=== PATIENT | female | born 1935 | race Caucasian/White ===

== ENCOUNTER 2017-08-26 12:46 | Emergency (ER) | payer BC, MEDICARE ==
[2017-08-26 13:50] LABS: ADD MAN DIFF? NO
[2017-08-26 13:53] LABS: BASO # 0.1 x10^3/uL (0.0-0.2); BASO % 1 % (0-3); EOS # 0.1 x10^3/uL (0.0-0.7); EOS % 2 % (0-3); HEMATOCRIT 41.6 % (36.0-47.0); LYMPH # 1.6 x10^3/uL (1.0-4.8); LYMPH % 31 % (24-48); MEAN CORPUSCULAR HEMOGLOBIN 33 pg (25-35); MEAN CORPUSCULAR HGB CONC 34 g/dL (31-37); MEAN CORPUSCULAR VOLUME 96 fL (79-100); MONO # 0.6 x10^3/uL (0.0-1.1); MONO % 12 % (0-9); NEUT # 2.8 x10^3uL (1.8-7.7); NEUT % 53 % (31-73); PLATELET COUNT 192 x10^3/uL (140-400); RED BLOOD COUNT 4.32 x10^6/uL (3.50-5.40); WHITE BLOOD COUNT 5.2 x10^3/uL (4.0-11.0)
[2017-08-26 13:59] LABS: BILIRUBIN,URINE NEGATIVE (NEG); CLARITY,URINE CLEAR; COLOR,URINE YELLOW; GLUCOSE,URINE NEGATIVE (NEG); NITRITE,URINE NEGATIVE (NEG); PROTEIN,URINE NEGATIVE (NEG-TRACE); UROBILINOGEN,URINE 0.2 mg/dL (0.2 mg/dL)
[2017-08-26 14:05] LABS: ANION GAP 5 (6-14); BLOOD UREA NITROGEN 22 mg/dL (7-20); BUN/CREATININE RATIO 12 (6-20); CALCIUM 9.1 mg/dL (8.5-10.1); CARBON DIOXIDE 32 mmol/L (21-32); CHLORIDE 105 mmol/L (98-107); CREATININE 1.8 mg/dL (0.6-1.0); GFR 27.1; GLUCOSE 118 mg/dL (70-99); POTASSIUM 4.3 mmol/L (3.5-5.1); SODIUM 142 mmol/L (136-145)
[2017-08-26 14:08] LABS: RBC,URINE OCC /HPF (0-2)
[2017-08-26 14:09] LABS: BACTERIA,URINE MODERATE /HPF (0-FEW); HYALINE CASTS, URINE FEW /HPF; SQUAMOUS EPITHELIAL CELL,UR MOD /LPF
[2017-08-26 14:11] LABS: ALBUMIN 3.3 g/dL (3.4-5.0); ALBUMIN/GLOBULIN RATIO 0.8 (1.0-1.7); ALK PHOS 62 U/L (46-116); ALT (SGPT) 21 U/L (14-59); AST (SGOT) 22 U/L (15-37); LIPASE 112 U/L (73-393); MAGNESIUM 2.2 mg/dL (1.8-2.4); TOTAL BILIRUBIN 0.2 mg/dL (0.2-1.0); TOTAL PROTEIN 7.2 g/dL (6.4-8.2)
[2017-08-26 14:14] LABS: TROPONINI < 0.017 ng/mL (0.000-0.055)
[2017-08-26 14:16] LABS: NT-PRO BNP 307 pg/mL (0-449)
[2017-08-26] MEDS: IV NORMAL SALINE 500ML BAG 500 ML IV (16:00)
== END 2017-08-26 16:35 | disposition home or self-care (01) ==
LOC: ER 12:46
DX: F03.90 Unspecified dementia, unspecified severity, without behavioral disturbance, psychotic disturbance, mood disturbance, and anxiety (principal); N39.0 Urinary tract infection, site not specified; N28.9 Disorder of kidney and ureter, unspecified; Z90.710 Acquired absence of both cervix and uterus; Z87.442 Personal history of urinary calculi; Z88.0 Allergy status to penicillin
CPT/HCPCS: 36415; 51702; 70450; 71045; 80053; 81001; 83690; 83735; 83880; 84484; 85025; 87086; 93005; 96360; 99285-25; J7040

== ENCOUNTER 2017-09-01 04:03 | Emergency (ER) | payer BC ==
[2017-09-01 05:13] LABS: BILIRUBIN,URINE NEGATIVE (NEG); CLARITY,URINE CLEAR; COLOR,URINE YELLOW; GLUCOSE,URINE NEGATIVE (NEG); NITRITE,URINE NEGATIVE (NEG); PH,URINE 6.5; PROTEIN,URINE NEGATIVE (NEG-TRACE); UROBILINOGEN,URINE 0.2 mg/dL (0.2 mg/dL)
[2017-09-01 05:14] LABS: BACTERIA,URINE 0 /HPF (0-FEW); RBC,URINE OCC /HPF (0-2)
[2017-09-01 05:15] LABS: HYALINE CASTS, URINE OCCASIONAL /HPF; SQUAMOUS EPITHELIAL CELL,UR MOD /LPF
== END 2017-09-01 06:45 | disposition home or self-care (01) ==
LOC: ER 04:03
DX: N39.0 Urinary tract infection, site not specified (principal); I10 Essential (primary) hypertension; Z87.442 Personal history of urinary calculi; Z87.440 Personal history of urinary (tract) infections; Z90.710 Acquired absence of both cervix and uterus; Z88.0 Allergy status to penicillin
CPT/HCPCS: 81001; 87086; 99284

== ENCOUNTER 2018-06-25 14:32 | Emergency (ER) | payer BC ==
[~2018-06-25] VITALS: Ht 162.6 cm; Wt 72.6 kg
[~2018-06-25 14:32] MED LIST: ALPR0.5T6 PO; BUPR150T11 PO; BUPR75TA6 PO; CRAN500C5 PO; HYDR1TAB26 PO; LATA2.5D3 OP; METO-239 PO; METO-269 PO; MIRT15TA90 PO; NITR100C62 PO; OMEP40CA5 PO; PSYL3.4P PO; SULF1TAB24 PO; ZOLP10TA4 PO
[2018-06-25 15:48] VITALS: BP 167/68
--- NOTE | 2018-06-25 18:23 | PHYS DOC ---
Past Medical History Past Medical History: Dementia, Depression, Hypertension, UTI Additional Past Medical Histor: kidney stones Past Surgical History: Hysterectomy Alcohol Use: None Drug Use: Other Social History Narrative: CBD OIL Adult General Chief Complaint Chief Complaint: MULTIPLE COMPLAINTS HPI HPI 82 y/o female presents to ER via POV with her Paul for complaints that pt has been having intermittent episodes of chills and sweating. Per pt has had blood work at her PCP's office this week and in the past couple of weeks and they haven't had any reports of abnormal labs. Pt's reports pt has been recently taken off tramadol for chronic rt shoulder pain and is taking tylenol for pain as her doctor wanted to see if pt being off tramadol would improve chills/sweating episodes. He reports pt has been to her PCP's office multiple times to discuss sweating episodes. Per pt is currently on antibiotics for UTI- uncertain of which antibiotic. Pt w/hx of Dementia and during initial discussion w/ only has c/o rt shoulder pain which husb. reports is not why she was brought to ER. He voices frustration on pt having intermittent episodes where she becomes sweaty and he has to change her clothes/bed linens frequently and he brought her to ER to find cause of her sweating episodes. He denies pt with change in MS, c/o CP/SOA, V/D episodes, or fever. Review of Systems Review of Systems Constitutional: Denies fever. Reports chills and sweating episodes which are worse at night Eyes: Denies change in visual acuity or eye pain [] HENT: Denies nasal congestion or sore throat [] Respiratory: Denies cough or shortness of breath [] Cardiovascular: No additional information not addressed in HPI [] GI: Denies abdominal pain, vomiting, bloody stools or diarrhea [] : Denies change in urinary pattern Musculoskeletal: Denies back pain. Reports chronic rt shoulder pain- no acute changes Integument: Denies rash or skin lesions [] Neurologic: Denies headache, focal weakness or sensory changes. Denies change in mental status Endocrine: Denies polyuria or polydipsia [] Pt with hx of Dementia- pt's providing ROS All other systems were reviewed and found to be within normal limits, except as documented in this note. Allergies Allergies Allergies Coded Allergies Type Severity Reaction Last Updated Verified Penicillins Allergy Intermediate HIVES AND SHORT OF BREATH 05/10/13 Yes Physical Exam Physical Exam Constitutional: No acute distress, non-toxic appearance. [] HENT: Normocephalic, atraumatic, oropharynx moist, nose normal. [] Eyes: Pupils equal, conjunctiva normal, no discharge. [] Neck: Normal range of motion, supple Cardiovascular: Heart rate regular Lungs & Thorax: Resp. equal/nonlabored Skin: Warm, dry Extremities: No cyanosis, no clubbing, ROM intact NL per her husb. Pt has tenderness on palp. rt anterior shoulder- no palp. deformity. ROM decreased rt shoulder. 2+ bilat. radial, no edema. [] Neurologic: Alert and oriented to self/place- hx Dementia and pt's husb. reports pt NL on MS; normal motor function, normal sensory function, no focal deficits noted. [] Psychologic: Affect normal, mood normal per husb. No agitation [] Current Patient Data Vital Signs Vital Signs Date Time Temp Pulse Resp B/P (MAP) Pulse Ox O2 Delivery O2 Flow Rate FiO2 06/25/18 15:48 98.7 100 20 167/68 (101) 95 Room Air 98.7 Lab Values Laboratory Tests Test 06/25/18 16:09 Glucose (Fingerstick) 106 mg/dL (70-99) H EKG EKG [] Radiology/Procedures Radiology/Procedures [] Course & Med Decision Making Course & Med Decision Making Indepth conversation had with pt's regarding presenting c/o pt having intermittent episodes of sweating and pt's 's frustration. Pt has had labs at PCP's office a couple of times per husb. to delmis. Pt currently on antibiotic for UTI- discussed possible low grade temp. with ongoing infection. Per husb. pt has chronic rt shoulder pain he denies any acute change in pt's MS or health issues. He voiced his frustration with having to change pt's clothes/linens d/t her diaphoretic episodes. Pt is afebrile and in no distress. Offered labs and discussed with pt's husb. that reason for "sweats" may not be dx'd with labs or during this ER visit. uncertain if he wants labs again as PCP had just obtained blood work. Following discussion wanted to consider idea of additional lab tests. Pt's informed staff that they are leaving the ER without tests or imaging. Pt's husb. stated he will f/u with pt's PCP and get her lab results from her lab blood tests. [] Dragon Disclaimer Dragon Disclaimer This electronic medical record was generated, in whole or in part, using a voice recognition dictation system. Departure Departure Referrals: DINORAH SHABAZZ MD (PCP) TONG CALLOWAY APRN Jun 25, 2018 18:23
== END 2018-06-25 17:19 | disposition left against medical advice (07) ==
LOC: ER 14:32
DX: G89.11 Acute pain due to trauma (principal); M25.511 Pain in right shoulder; R68.83 Chills (without fever); R61 Generalized hyperhidrosis; I10 Essential (primary) hypertension; F03.90 Unspecified dementia, unspecified severity, without behavioral disturbance, psychotic disturbance, mood disturbance, and anxiety; Z88.0 Allergy status to penicillin
CPT/HCPCS: 82962; 99284